=== PATIENT | male | born 2000 | race Caucasian/White ===

== ENCOUNTER 2022-08-16 13:51 | Emergency (ER) | payer OTHER ==
[~2022-08-16] VITALS: Ht 172.7 cm; Wt 73.2 kg
[2022-08-16 15:29] LABS: C REACTIVE PROTEIN QUANTITATIV 1.79 MG/DL (0.00-0.30); HEMATOCRIT 33.6 % (42.0-52.0); HEMOGLOBIN 11.8 g/dl (13.5-17.5); MEAN CORPUSCULAR HEMOGLOBIN 29.8 pg (27.0-33.0); MEAN CORPUSCULAR HGB CONC 35.1 g/dl (32.0-36.5); MEAN CORPUSCULAR VOLUME 84.8 fl (80.0-96.0); PLATELET COUNT, AUTOMATED 140 10^3/uL (150-450); RED BLOOD COUNT 3.96 10^6/uL (4.30-6.10); WHITE BLOOD COUNT 5.8 10^3/uL (4.0-10.0)
[2022-08-16 15:59] LABS: ERYTHROCYTE SEDIMENTATION RATE 8 mm/hr (0-15)
[2022-08-16] MEDS ORDERED: diphenhydrAMINE 50MG CAP PO ONE (16:10)
[2022-08-16 16:29] LABS: ATYPICAL LYMPH 27 % (0-5); LYMPHOCYTES 23 % (16-44); MONOCYTES 4 % (0-5); NEUTROPHILS 43 % (28-66); PLASMA CELL 2 % (0-0)
[2022-08-16 16:30] LABS: MICROCYTOSIS 1+; PLATELET ESTIMATE NORMAL (NORMAL)
[2022-08-16] MEDS ORDERED: FAMOTIDINE 20MG/2ML VIAL IVP ONE (16:35)
[2022-08-16] MEDS ORDERED: NS 1,000 ML IV ONE (16:35)
[2022-08-16] MEDS ORDERED: methylPREDNISolone 125MG 2ML VIAL IV ONE (16:35)
[2022-08-16] MEDS ORDERED: ISOVUE-370 76% 100ML VIAL As Ordered ONE (16:43)
[2022-08-16 17:06] LABS: MONO REFLEX EBV COMP POSITIVE (NEGATIVE)
[2022-08-16 18:41] VITALS: BP 118/58
== END 2022-08-16 18:50 | disposition home or self-care (01) ==
LOC: M ED 13:51
DX: B27.90 Infectious mononucleosis, unspecified without complication (principal); R59.9 Enlarged lymph nodes, unspecified
CPT/HCPCS: 70450; 70491; 80047; 85025; 85652; 86140; 86308; 87040; 96361; 96374; 96375; 99284; J2930; Q9967